=== PATIENT | female | born 2000 | race Asian ===

== ENCOUNTER 2021-03-16 20:52 | Observation (INO) | payer OTHER ==
[~2021-03-16] VITALS: Ht 165.1 cm; Wt 88.0 kg
[2021-03-16] MEDS ORDERED: PREN-537 PO (22:01)
== END 2021-03-16 22:20 | disposition home or self-care (01) ==
LOC: MLD 20:52
PROVIDERS: ADMIT Obstetrics & Gynecology; ATTEND Obstetrics & Gynecology
DX: O36.8120 Decreased fetal movements, second trimester, not applicable or unspecified (principal); O26.892 Other specified pregnancy related conditions, second trimester; R10.9 Unspecified abdominal pain; Z3A.22 22 weeks gestation of pregnancy
CPT/HCPCS: 59025; 81000; G0378